=== PATIENT | male | born 1965 | race Caucasian/White ===

== ENCOUNTER 2019-06-23 08:25 | Day surgery (SDC) | payer BC ==
[2019-06-22 11:12] LABS: BASOPHILS 0.4 % (0-2); EOSINOPHILS 1.8 % (0-7); HEMATOCRIT 44.3 % (42.0-54.0); HEMOGLOBIN 14.7 g/dL (13.5-17.5); IMMATURE GRANULOCYTES 0.2 % (0-5); LYMPHOCYTES 39.6 % (15-50); MCH 30.1 pg (26.0-34.0); MCHC 33.2 g/dL (31.0-37.0); MCV 90.6 fL (80.0-100.0); MONOCYTES 7.7 % (2-11); NEUTROPHILS 50.3 % (40-80); PLATELET COUNT 253 10x3/uL (130-400); RBC 4.89 10x6/uL (4.20-6.10); RDW 12.7 % (11.5-14.5); WBC 5.4 10x3/uL (4.8-10.8)
[2019-06-22 11:14] LABS: CALC OSMOLALITY 283 mosm/kg (275-300); CALCIUM 9.5 mg/dL (8.5-10.1); CARBON DIOXIDE 31.2 mmol/L (21.0-32.0); CHLORIDE - SERUM 102 mmol/L (98-107); CREATININE - SERUM 0.9 mg/dL (0.6-1.3); GLUCOSE 148 mg/dL (74-106); POTASSIUM - SERUM 4.5 mmol/L (3.5-5.1); SODIUM 139 mmol/L (136-145); UREA NITROGEN 20 mg/dL (7-18); eGFR NON AFRICAN AMERICAN > 90 mL/min (90-120)
[2019-06-22 11:18] LABS: APTT 25.7 SECONDS (22.8-39.4); INR 0.9 (0.85-1.17); PROTIME 11.7 SECONDS (11.6-15.0)
[~2019-06-23] VITALS: Ht 175.3 cm; Wt 91.6 kg
[2019-06-23 08:03] VITALS: BP 142/90; Ht 175.3 cm; Wt 91.6 kg
[~2019-06-23 08:25] MED LIST: CALCIUM/MAG/VIT D PO; FISH OIL 1,0001 CA1 PO; METFORMIN HCL500 M1 PO; TRILIPIX135 MG PO; VITAMIN B COMPLEX PO; VITAMIN C500 M1 PO
--- NOTE | 2019-06-23 12:19 | NUR ---
[facility] - SHORT STAY PER ANESTHESIA
--- NOTE | 2019-06-23 12:28 | OP ---
PATIENT NAME: SANTOS TUCKER MEDICAL RECORD: [id number] :69 LOCATION:D[facility] ADMISSION DATE: SURGEON: RENAY ARTEAGA MD DATE OF OPERATION: 06/23/2019 SURGEON: Renay Arteaga MD ANESTHESIA: [facility]IVA by Tramaine Guido CRNA DIAGNOSIS: Obstructive benign prostatic hyperplasia with PSA 0.3. IPSS score is 25. Quality of life score is 5. QUINCY shows a 30 gram prostate. PROCEDURE: UroLift times 8 units deployed, 3 held. FINDINGS: Primarily bladder neck obstruction, single ureteral orifices bilaterally. No bladder tumors. ESTIMATED BLOOD LOSS: Minimal. CLINICAL HISTORY: This is a 54-year-old male with obstructive BPH symptoms since 2016. At that time, he was started on doxazosin and tamsulosin. He did not find any improvement in his voiding symptoms. He then saw Dr. Najera who started him on finasteride. The finasteride also did not help and he finally stopped taking all of his medications in September of 2018. He has daytime urinary frequency every 30 minutes and urgency without urge incontinence. There is a weak flow. He wishes to have the UroLift procedure done. He is not allergic to any medications. He was given Ancef head of operation and logistics to the OR. DESCRIPTION OF PROCEDURE: The patient was given IV sedation. He was then placed into lithotomy position and prepped and draped. A UroLift scope was introduced. There are no urethral strictures. The lateral lobes are mildly obstructive, but the main site of obstruction seems to be the bladder neck. Going into the bladder itself, there were no bladder tumors seen. There were single ureteral orifices on each side. A 1.5 cm distal to the bladder neck, at the anterolateral sulcus, we placed one UroLift of the unit on each side. I then went over to the level of the verumontanum and at the anterolateral sulcus on the right side, I fired a unit and this held properly. On the left side, I tried multiple times and each time I struck bone or had a misfire and eventually I had to stop trying as the patient was getting very restless. With what he has with 3 units and he does have an open urethral channel. Hopefully, this will be sufficient to relieve his symptoms. Because of the multiple firings, the prostate bled a little bit. A Gil catheter was inserted, 16-Tamazight size Gil catheter. This will be kept in for a few days and then removed in my office. TRANSINT:[id number] Voice Confirmation ID: [id number] DOCUMENT ID: [id number] OPERATIVE REPORT [id number] SANTOS TUCKER, RENAY Arizmendi MD at 1228 CC: [id number] DICTATION DATE: 06/23/19 1150 APPLE SORTER: 06/23/19 1207 REG [place] [id number] [place] [id number]
== END 2019-06-23 14:10 | disposition home or self-care (01) ==
LOC: D.OPS 08:25
PROVIDERS: Anesthesiology; ATTEND Urology
DX: N40.1 Benign prostatic hyperplasia with lower urinary tract symptoms (principal); N13.8 Other obstructive and reflux uropathy

== ENCOUNTER → 2019-06-26 15:45 | Outpatient (CLI) | payer BC ==
[2019-06-23 08:03] VITALS: BMI 29.9
== END | disposition home or self-care (01) ==
LOC: D.LABREF 15:45
PROVIDERS: ATTEND Urology
DX: Z98.890 Other specified postprocedural states (principal)